=== PATIENT | male | born 1965 | race Caucasian/White ===

== ENCOUNTER 2019-04-20 07:44 | Observation (INO) | payer OTHER ==
[~2019-04-20] VITALS: Ht 165.1 cm; Wt 72.6 kg
--- NOTE | ~2019-04-20 | P ---
[facility] [place] [address] PROCEDURE REPORT Name: TIFFANIE VELASQUEZ VISHAL Room #: 357-P [facility] Andreas Hernandez#: [id number] Admission: 04/20/19 ������������������ Attend Phys: Alex Biggs MD Discharge: 04/21/19 ������������������ Date of : 65 Report #: [id number] THIS REPORT FOR: //name// CC: Tahir Biggs DATE OF SERVICE: 04/21/2019 PROCEDURE PERFORMED: Upper endoscopy with biopsies. HISTORY OF PRESENT ILLNESS: The patient is a 53-year-old male with a history of gastroesophageal reflux disease. He has had a migraine headache for the last several days. CT and MRI of the head are both negative. Neurology is following. The patient is also with increased belching, heartburn symptoms of mid epigastric abdominal pain. Plan is for upper endoscopy. DESCRIPTION OF PROCEDURE: The risks and benefits of the procedure were explained to the patient, those risks including but not limited to bleeding, perforation and the risk of sedation. He understood these risks and gave informed consent. Sedation was given using propofol per anesthesia. Next, using a standard Olympus upper endoscope, the scope was placed in the patient's mouth and advanced under direct vision through the esophagus, stomach and into the second portion of the duodenum. The larynx was normal in appearance. The upper and mid esophagus was normal. In the distal esophagus at the GE junction, grade A erosive esophagitis was noted. Overall, the gastric mucosa was normal in the fundus and body; however, there was a mild gastritis in the antrum. Biopsies were obtained to rule out H. pylori. The pylorus was normal and patent. The duodenal bulb, first and second portion were normal. The scope was then withdrawn and the procedure terminated. The patient tolerated the procedure well. IMPRESSION: 1. Mild gastritis. 2. Grade A erosive esophagitis. 3. Otherwise, normal upper endoscopy. RECOMMENDATIONS: 1. Await biopsy results. 2. The patient with grade A erosive esophagitis despite taking Protonix on a daily basis at home. We would therefore recommend b.i.d. therapy. We will also add Carafate for the next [address] [address] PROCEDURE REPORT Name: TIFFANIE VELASQUEZ Room #: 357-P [facility] Andreas Hernandez#: [id number] Admission: 04/20/19 ������������������ Attend Phys: Alex Biggs MD Discharge: 04/21/19 ������������������ Date of : 65 Report #: [id number] Thank you for allowing me to participate in his care. ��������������������������������������������� ���������������������������������������� By: ��������������������������������������������� 1245 0031 Stanley Isabel MD /nt
[2019-04-20 07:44] VITALS: BP 116/77
[~2019-04-20 07:44] MED LIST: ACETAMINOPHEN325 M1 PO; ANXIETY MED; AUGMENTIN 875-1 EACH PO; BAYER MIGRAINE1 EACH PO; CIPRO250 M1 PO; CITRATE OF MAG296 ML PO; COLACE100 MG PO; GAS-X125 MG; METRONIDAZOLE500 M4 PO; NORCO 5-325 TA1 EACH PO; OMEPRAZOLE 20 M20 M1 PO; OMEPRAZOLE40 MG PO; PEPTO-BISMOL1 TAB; PERCOCET 5-3251 EACH PO; PROTONIX40 M1 PO; ZOFRAN ODT4 MG PO
[2019-04-20 09:01] LABS: ABSOLUTE NEUTROPHILS 3.9 thou/uL (1.4-8.2); BASOPHILS 0.8 % (0.0-2.0); EOSINOPHILS 2.2 % (0.0-3.0); HEMATOCRIT 45.2 % (42.0-52.0); HEMOGLOBIN 15.4 gm/dL (14.0-18.0); LYMPHOCYTES 22.2 % (24.0-44.0); MCH 30.9 pg (26.0-34.0); MCV 90.9 fL (80.0-100.0); MONOCYTES 7.7 % (1.0-8.0); PLATELET COUNT 193 thou/uL (150-400); POLYS 67.1 % (36.0-66.0); RBC 4.97 mil/uL (4.50-6.00); RDW 13.7 % (10.5-14.5); WBC 5.8 thou/uL (4.0-11.0)
[2019-04-20 09:08] LABS: ANION GAP 10 mmol/L (7-16); BUN 17 mg/dL (7-18); CALCIUM 8.5 mg/dL (8.5-10.1); CHLORIDE 107 mmol/L (98-107); CO2 23 mmol/L (21-32); CREATININE 1.1 mg/dL (0.7-1.3); GLUCOSE 86 mg/dL (74-106); POTASSIUM 3.8 mmol/L (3.5-5.1); SODIUM 140 mmol/L (136-145)
[2019-04-20 09:18] LABS: ALBUMIN 3.9 g/dL (3.4-5.0); LIPASE 170 U/L (73-393); MAGNESIUM 2.1 mg/dL (1.8-2.4); SGOT 10 U/L (15-37); SGPT 21 U/L (30-65); TOTAL BILIRUBIN 0.4 mg/dL (<0.1-1.0); TOTAL PROTEIN 6.9 g/dL (6.4-8.2); TROPONIN-I <0.06 ng/mL (<0.06)
[2019-04-20 11:34] LABS: URINE BILIRUBIN NEGATIVE (Negative); URINE BLOOD NEGATIVE (Negative); URINE CLARITY CLEAR; URINE COLOR YELLOW; URINE GLUCOSE-RANDOM* NEGATIVE (Negative); URINE KETONES NEGATIVE (Negative); URINE LEUKOCYTES-REFLEX NEGATIVE (Negative); URINE NITRITE-REFLEX NEGATIVE (Negative); URINE PROTEIN (DIPSTICK) NEGATIVE (Negative); URINE SPECIFIC GRAVITY <= 1.005 (1.005-1.035); URINE UROBILINOGEN 0.2 E.U./dl (0.2-1.0)
[2019-04-20 14:53] VITALS: BP 118/65
[2019-04-20 15:16] VITALS: BP 118/65
--- NOTE | 2019-04-20 16:41 | EKG ---
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: coco : 1965 Requested By: Stephanie Clement Order Number: [id number] MD: Joe Willson Measurements Intervals [place] Rate: 56 P: 56 ND: 144 QRS: 41 QRSD: 92 T: 30 QT: 409 QTc: 395 Interpretive Statements Sinus rhythm Compared to ECG 02/07/2015 13:51:54 ST (T wave) deviation no longer present Electronically Signed On 04-20-2019 16:41:16 CDT by Joe Willson [email or web address] ��������������������������������������������� <ELECTRONICALLY SIGNED> ���������������������������������������� By: Joe Willson MD ��������������������������������������������� 04/20/19 1641 4 4 Joe Willson MD /FLAKITA
[2019-04-20 19:23] VITALS: BP 108/75
--- NOTE | 2019-04-21 03:28 | NUR ---
PATIENT IS ALERT AND ORIENTED. PATIENT IS UP AD CEASAR. PATIENT IS ROOM AIR. PATIENTS LBM WAS THE 19TH. PATIENT HAS BEEN NPO SENSE MIDNIGHT. PATIENT IS PENDING EGD AND MRI TODAY. PATIENT IS MS NO TELE. PATINET PAIN IS RATED A 3 A HEADACHE. PATIENT REFUSES PAIN MEDICATION. PATIENT IS RESTING COMFORTABLY IN BED. WCM. PATIENT IS PROGRESSING TO GOALS.
[2019-04-21 04:00] VITALS: BP 110/76
[2019-04-21 05:25] LABS: ABSOLUTE NEUTROPHILS 3.9 thou/uL (1.4-8.2); BASOPHILS 0.7 % (0.0-2.0); EOSINOPHILS 2.8 % (0.0-3.0); HEMATOCRIT 42.6 % (42.0-52.0); HEMOGLOBIN 14.4 gm/dL (14.0-18.0); LYMPHOCYTES 23.5 % (24.0-44.0); MCH 30.9 pg (26.0-34.0); MCHC 33.8 g/dL (28.0-37.0); MCV 91.5 fL (80.0-100.0); MONOCYTES 7.1 % (1.0-8.0); PLATELET COUNT 162 thou/uL (150-400); POLYS 65.9 % (36.0-66.0); RBC 4.66 mil/uL (4.50-6.00); RDW 13.7 % (10.5-14.5)
[2019-04-21 06:00] LABS: ANION GAP 11 mmol/L (7-16); BUN 18 mg/dL (7-18); CALCIUM 8.2 mg/dL (8.5-10.1); CHLORIDE 112 mmol/L (98-107); CHOLESTEROL 178 mg/dL (<200); CO2 20 mmol/L (21-32); GLUCOSE 101 mg/dL (74-106); HDL CHOLESTEROL 26 mg/dL (>40); LDL CHOLESTEROL 116 mg/dL (<100); POTASSIUM 4.5 mmol/L (3.5-5.1); SODIUM 143 mmol/L (136-145); TC:HDL 6.8 Ratio (Not establshd); TRIGLYCERIDE 181 mg/dL (<150); VLDL 36 mg/dL (<40)
[2019-04-21 06:08] LABS: SERUM ASSESSMENT Clear
[2019-04-21 06:58] VITALS: BP 109/73
[2019-04-21] MEDS ORDERED: PROTONIX40 M1 PO (14:54)
[2019-04-21] MEDS ORDERED: CARAFATE 1 GM TA1 G1 PO (14:54)
[2019-04-21 15:02] VITALS: BP 109/73
--- NOTE | 2019-04-21 16:08 | NUR ---
ASSUMED PATIENT CARE AT 0700. A/0 X4. TOLERARED EGD. NO CHEAT PAIN. DC HOME NOW.
[2019-04-21 16:10] VITALS: BP 111/82
--- NOTE | 2019-04-24 14:06 | PATH ---
[facility] [address] [place] [address] PATHOLOGY RPT PROCEDURE Name: GUSTAVO VELASQUEZ VISHAL Room #: 357-P CEDRIC Hernandez#: [id number] ������������������ Admission: 04/20/19 ������������������ Date of : 65 Discharge: 04/21/19 Report #: [id number] Path Case #: [id number] [facility] Accession Number: [id number] . 01 Material submitted: . stomach - BX GASTRITIS . 01 Clinical history: . Abdominal pain, gastritis. . 02 Diagnosis: Gastric mucosa, gastritis rule out H. pylori, endoscopic biopsy: - Mild reactive gastropathy. - Negative for intestinal metaplasia or atrophy. - Negative for Helicobacter pylori (properly controlled immunohistochemical stain performed). ([facility]UV:infrastructure director; 04/24/2019) [facility] 04/24/2019 1014 Local . 02 Electronically signed: . Cassi Espino MD, Pathologist NPI- [id number] . 01 Gross description: . Received in formalin labeled "Gustavo Velasquez, BX gastritis rule out H. pylori" is a 1.0 x 0.2 x 0.1 cm aggregate of avila-brown mucosa fragments. The specimen is submitted in A1. ([facility]; 04/22/2019) [facility] 04/22/2019 1538 Local . 02 Pathologist provided ICD-10: K31.9 . 02 CPT . 114209, R34381 Specimen Comment: A courtesy copy of this report has been sent to Specimen Comment: [phone], , . Specimen Comment: Report sent to ,DR CARVER / DR ARCOS Specimen Comment: A duplicate report has been generated due to demographic updates. Performed at: [address], [place] [id number] MD Rafael Fry MD Phone: [phone] Performed at: [address] [id number] MD Cassi Espino MD Phone: [phone]
== END 2019-04-21 16:19 | disposition home or self-care (01) ==
LOC: ER 07:44 → EROBS 10:38 → 3W 10:38
PROVIDERS: Emergency Medicine Emergency Medical Services; Nurse Practitioner; ADMIT Hospitalist
DX: K29.70 Gastritis, unspecified, without bleeding (principal); K21.0 Gastro-esophageal reflux disease with esophagitis; G43.909 Migraine, unspecified, not intractable, without status migrainosus; R07.89 Other chest pain; I95.9 Hypotension, unspecified; K57.92 Diverticulitis of intestine, part unspecified, without perforation or abscess without bleeding; Z79.82 Long term (current) use of aspirin; Z79.899 Other long term (current) drug therapy; Z87.891 Personal history of nicotine dependence; Z86.73 Personal history of transient ischemic attack (TIA), and cerebral infarction without residual deficits
CPT/HCPCS: 10879; 62110; 62900; 70005

== ENCOUNTER 2019-08-24 07:58 | Emergency (ER) | payer OTHER ==
[~2019-08-24] VITALS: Ht 165.1 cm; Wt 72.6 kg
[~2019-08-24 07:58] MED LIST changes: +CARAFATE 1 GM TA1 G1 PO
[2019-08-24 09:50] VITALS: BP 106/54
== END 2019-08-24 10:00 | disposition home or self-care (01) ==
LOC: ER 07:58
DX: R51 Headache (principal); Z87.891 Personal history of nicotine dependence; Z87.01 Personal history of pneumonia (recurrent)